=== PATIENT | female | born 1950 | race Caucasian/White ===

== ENCOUNTER 2018-10-31 22:06 | Emergency (ER) | payer OTHER ==
[~2018-10-31] VITALS: Ht 160 cm; Wt 68.5 kg
[2018-10-31 22:21] VITALS: Ht 160 cm; Wt 68.5 kg
[2018-11-01 01:27] VITALS: BP 147/98
== END 2018-11-01 01:28 | disposition home or self-care (01) ==
LOC: ED 22:06
DX: S09.8XXA Other specified injuries of head, initial encounter (principal); I10 Essential (primary) hypertension; W22.8XXA Striking against or struck by other objects, initial encounter; Y93.89 Activity, other specified; Y92.89 Other specified places as the place of occurrence of the external cause; Y99.8 Other external cause status

== ENCOUNTER 2018-12-01 17:27 | Emergency (ER) | payer OTHER ==
[~2018-12-01] VITALS: Ht 154.9 cm; Wt 67.6 kg
[2018-12-01 17:46] VITALS: Ht 154.9 cm; Wt 67.6 kg
[2018-12-01 19:06] VITALS: BP 136/90
== END 2018-12-01 19:06 | disposition home or self-care (01) ==
LOC: ED 17:27
DX: H60.93 Unspecified otitis externa, bilateral (principal); I10 Essential (primary) hypertension; J02.9 Acute pharyngitis, unspecified